=== PATIENT | female | born 1935 | race Two or more races ===

== ENCOUNTER 2017-11-06 21:55 | Inpatient (IN) | payer OTHER, MEDICAID ==
[~2017-11-06] VITALS: Ht 154.9 cm; Wt 76.3 kg
[~2017-11-06 21:55] MED LIST: ADV250/50 INH; CLA10 PO; CLINDAMYCIN HC300 MG PO; DIOVAN160 MG PO; LAC PO; LEVAQUIN750 MG PO; LEVOFLOXACIN500 M1 PO; LIPITOR40 MG PO; MEDDP PO; METOPROLOL SUCC25 M1 PO; METOPROLOL SUCC50 M2 PO; OMEPRAZOLE DR20 M1 PO; PROAIR HFA0.09 MG/A1 INH; ROBDML PO; SING10 PO
[2017-11-06 21:59] VITALS: Ht 154.9 cm; Wt 76.3 kg
[2017-11-06 23:51] LABS: BASOPHIL % 0.6 % (0-2); PLATELET COUNT 215 x10^3mcL (130-400); RED CELL DISTRIBUTION WIDTH 14.1 % (11.5-14.5)
[2017-11-07] VITALS (7 sets, daily range): BP systolic 115–173; BP diastolic 65–83
[2017-11-07 00:01] LABS: CARBON DIOXIDE 26.4 mmol/L (21-32); CHLORIDE SERUM 101 mmol/L (98-107); CREATININE SERUM 0.8 mg/dL (0.6-1.0); GLUCOSE SERUM 92 mg/dL (74-106); POTASSIUM SERUM 3.8 mmol/L (3.5-5.1); SODIUM SERUM 139 mmol/L (136-145)
[2017-11-07 00:06] LABS: ALBUMIN 3.9 g/dL (3.4-5.0); ALKALINE PHOSPHATASE 73 U/L (46-116); ALT/SGPT 19 U/L (14-59); AST/SGOT 16 U/L (15-37); BILIRUBIN TOTAL 0.8 mg/dL (0.20-1.00); TOTAL PROTEIN, SERUM 7.6 g/dL (6.4-8.2)
[2017-11-07] MEDS ORDERED: LIPI10 PO (01:06)
[2017-11-07 02:26] LABS: CHOLESTEROL/HDL RATIO 3.1; MAGNESIUM 2.2 mg/dL (1.8-2.4); PHOSPHOROUS 3.6 mg/dL (2.5-4.9)
[2017-11-07 02:36] LABS: FREE T4 1.13 ng/dL (0.76-1.46); FREE THYROXINE INDEX 2.8 ug/dL (1.4-4.5); T4(THYROXINE) 8.6 ug/dL (4.7-13.3)
[2017-11-07] MEDS ORDERED: ASPIR 8181 MG PO (02:55)
[2017-11-07 03:03] LABS: T3 TOTAL 1.31 ng/mL
[2017-11-07 17:11] LABS: AMPHETAMINE QUAL UR NONE DETECTED (NEG <=1000)
[2017-11-07 18:06] LABS: microscopic required? NO
[2017-11-07 19:19] LABS: urine erythrocyte NEGATIVE (NEGATIVE)
[2017-11-08 05:18] VITALS: BP 118/65
[2017-11-08 07:10] LABS: BASOPHIL % 0.8 % (0-2); PLATELET COUNT 198 x10^3mcL (130-400); RED CELL DISTRIBUTION WIDTH 14.4 % (11.5-14.5)
[2017-11-08 07:26] LABS: CALCIUM 8.8 mg/dL (8.5-10.1); CARBON DIOXIDE 26.4 mmol/L (21-32); CHLORIDE SERUM 102 mmol/L (98-107); CREATININE SERUM 0.9 mg/dL (0.6-1.0); GLUCOSE SERUM 86 mg/dL (74-106); MAGNESIUM 2.2 mg/dL (1.8-2.4); PHOSPHOROUS 4.8 mg/dL (2.5-4.9); POTASSIUM SERUM 3.5 mmol/L (3.5-5.1); SODIUM SERUM 139 mmol/L (136-145)
[2017-11-08 09:38] VITALS: BP 132/61
[2017-11-08] MEDS ORDERED: NOR5 PO (11:47)
[2017-11-08] MEDS ORDERED: ECO81 PO (11:48)
[2017-11-08] MEDS ORDERED: HYD25 PO (11:49)
[2017-11-08 14:28] VITALS: BP 127/76
[2017-11-08 14:52] VITALS: BP 127/76
== END 2017-11-08 16:38 | disposition home or self-care (01) | DRG 305 ==
LOC: ED 21:55 → DU 11-07 01:06
PROVIDERS: Emergency Medicine; Family Medicine
DX: I16.0 Hypertensive urgency (principal); I42.2 Other hypertrophic cardiomyopathy; N13.30 Unspecified hydronephrosis; I71.2 Thoracic aortic aneurysm, without rupture; M19.012 Primary osteoarthritis, left shoulder; M19.011 Primary osteoarthritis, right shoulder; I08.1 Rheumatic disorders of both mitral and tricuspid valves; I10 Essential (primary) hypertension; E78.5 Hyperlipidemia, unspecified; Z68.29 Body mass index [BMI] 29.0-29.9, adult; Z79.82 Long term (current) use of aspirin
CPT/HCPCS: 83880; 84439; 97110-GP; 97530-GP; J0360; J1885; J2550; J7030; J8597; Q0092; Q9967

== ENCOUNTER 2018-06-21 14:48 | Inpatient (IN) | payer OTHER, MEDICAID ==
[~2018-06-21] VITALS: Ht 154.9 cm; Wt 76.0 kg
[~2018-06-21 14:48] MED LIST changes: +ASPIR 8181 MG PO; +ECO81 PO; +HYD25 PO; +LIPI10 PO; +NOR5 PO
[2018-06-21 14:57] VITALS: Ht 154.9 cm; Wt 76.0 kg
[2018-06-21] MEDS ORDERED: PROAIR HFA8.5 GM IH (15:28)
[2018-06-21 16:26] LABS: BASOPHIL % 0.6 % (0-2); PLATELET COUNT 226 x10^3mcL (130-400); RED CELL DISTRIBUTION WIDTH 14.3 % (11.5-14.5)
[2018-06-21 16:58] LABS: CALCIUM 9.5 mg/dL (8.5-10.1); CARBON DIOXIDE 31.1 mmol/L (21-32); CHLORIDE SERUM 104 mmol/L (98-107); GLUCOSE SERUM 91 mg/dL (74-106); POTASSIUM SERUM 3.8 mmol/L (3.5-5.1); SODIUM SERUM 142 mmol/L (136-145)
[2018-06-21 17:02] LABS: ALBUMIN 3.7 g/dL (3.4-5.0); ALKALINE PHOSPHATASE 62 U/L (46-116); ALT/SGPT 19 U/L (14-59); AST/SGOT 13 U/L (15-37); BILIRUBIN TOTAL 0.45 mg/dL (0.20-1.00); LIPASE 166 IU/L (73-393); TOTAL PROTEIN, SERUM 7.6 g/dL (6.4-8.2)
[2018-06-21 19:06] VITALS: BP 161/95
[2018-06-21 21:02] VITALS: BP 138/79
[2018-06-22 05:48] LABS: BASOPHIL % 0.8 % (0-2); PLATELET COUNT 224 x10^3mcL (130-400); RED CELL DISTRIBUTION WIDTH 12.9 % (11.5-14.5)
[2018-06-22 06:16] VITALS: BP 102/55
[2018-06-22 07:03] LABS: ALBUMIN 3.5 g/dL (3.4-5.0); ALKALINE PHOSPHATASE 64 U/L (46-116); ALT/SGPT 17 U/L (14-59); AST/SGOT 15 U/L (15-37); BILIRUBIN TOTAL 0.6 mg/dL (0.20-1.00); CALCIUM 9.1 mg/dL (8.5-10.1); CHLORIDE SERUM 99 mmol/L (98-107); CHOLESTEROL 149 mg/dL (<200); CHOLESTEROL/HDL RATIO 3.7; CREATININE SERUM 1.1 mg/dL (0.6-1.0); GLUCOSE SERUM 92 mg/dL (74-106); HDL CHOLESTEROL 40 mg/dL (40-60); POTASSIUM SERUM 3.5 mmol/L (3.5-5.1); SODIUM SERUM 137 mmol/L (136-145); TOTAL PROTEIN, SERUM 7.4 g/dL (6.4-8.2); TRIGLYCERIDES 137 mg/dL (<150)
[2018-06-22 09:05] VITALS: BP 100/54
[2018-06-22 12:15] VITALS: BP 118/72
[2018-06-22 17:21] VITALS: BP 106/67
[2018-06-22 20:52] VITALS: BP 109/64
[2018-06-23 06:04] VITALS: BP 99/53
[2018-06-23 08:30] VITALS: BP 132/62
[2018-06-23 13:55] VITALS: BP 108/67
[2018-06-23 17:20] VITALS: BP 101/68
[2018-06-23 21:01] VITALS: BP 107/59
[2018-06-24] VITALS (7 sets, daily range): BP systolic 114–128; BP diastolic 62–78
[2018-06-24] MEDS ORDERED: LASIX20 MG PO (15:21)
[2018-06-24] MEDS ORDERED: DIOVAN160 MG PO (16:13)
== END 2018-06-24 17:34 | disposition home or self-care (01) | DRG 299 ==
LOC: ED 14:48 → DU 18:02
PROVIDERS: Emergency Medicine; Internal Medicine
DX: I71.2 Thoracic aortic aneurysm, without rupture (principal); I50.33 Acute on chronic diastolic (congestive) heart failure; I11.0 Hypertensive heart disease with heart failure; J45.909 Unspecified asthma, uncomplicated; E78.00 Pure hypercholesterolemia, unspecified; E78.5 Hyperlipidemia, unspecified; Z68.31 Body mass index [BMI] 31.0-31.9, adult
CPT/HCPCS: 83880; A9500; J1650; J1940; J2270; J2785; J3535; J7613; J7620; Q0092; Q9967